=== PATIENT | female | born 1965 | race Caucasian/White ===

== ENCOUNTER 2016-05-18 10:34 | Inpatient (IN) | payer OTHER ==
--- NOTE | ~2016-05-18 | CR80 ---
[facility] A Service of [facility] & [facility] RADIOLOGY TEXT RESULTS PATIENT: FREDY MARTINEZ LOCATION: [facility] 47-01 : [birth year] UNIT #: [id number] AGE: [address]: Richy Cooper MD SEX: F ORDER DR: [id number] [facility] [address] [place], [place] [address] [id number] I MR#: [id number] Acc #: [id number] NAME: FREDY MARTINEZ : 1965 SEX: F STUDY DATE/TIME: 05/23/2016 14:59 UNIT: [facility] ROOM: [facility] STUDY DESCRIPTION: CR Cystogram Min 3 Views SI Attending Physician: Richy Cooper Jr., M.D. Ordering Physician: Lele Avila M.D. Primary Care Physician: Mirta Bagley M.D. MEDICAL IMAGING REPORT This report is preliminary unless electronic signature is present EXAM Cystogram, 05/23/2016 HISTORY Postop bladder surgery. Bladder cancer. Prior bladder fistula. Fluoroscopy time 2.2 minutes. FINDINGS 12 fluoroscopic spot films were obtained during the cystogram. The patient arrived at the fluoroscopy suite with a Garcia catheter in place. Fagot Heater images demonstrate surgical clips and skinny in the central pelvis and surgical skin skinny over the left pelvis. Approximately 100 mL of contrast was instilled into the bladder before the patient described maximal bladder filling. There was grade 3 vesicoureteral reflux on the left with preferential reflux into the left ureter. No vesicoureteral reflux on the right. No bladder mass or diverticulum is identified. No bladder leak. Contrast was subsequently drained through the Garcia catheter and the bladder was emptied completely. IMPRESSION 1. No evidence of bladder leak. 2. No bladder mass is identified. No bladder diverticulum. 3. Grade 3 vesicoureteral reflux on the left. No vesicoureteral reflux on the right. Dictated by... Jignesh Ford M.D. THIS IS AN ELECTRONICALLY VERIFIED REPORT Jignesh Ford M.D. at 05/24/2016 2:16 PM [facility] A Service of [facility] & [facility] RADIOLOGY TEXT RESULTS PATIENT: FREDY MARTINEZ LOCATION: [facility] 477-01 : [birth year] UNIT #: [id number] AGE: [address]: Richy Cooper MD SEX: F ORDER DR: ANUPAM/fina TD: 05/24/2016 05:30 JOB #: [id number] MEDICAL IMAGING REPORT COPY
--- NOTE | ~2016-05-18 | OR ---
Unit #: [id number] #: [id number] Patient: FREDY MARTINEZ [id number] [address] [address] [id number] I MR#: [id number] NAME: FREDY MARTINEZ ROOM: 47 Date of Procedure: 05/18/2016 Admission Date: 05/18/2016 Surgeon: Sundeep Fleming M.D. : 1965 Attending Physician: Richy Cooper Jr., M.D. Primary Care Physician: Mirta Bagley M.D. OPERATIVE REPORT PREOPERATIVE DIAGNOSIS Colovesical fistula. POSTOPERATIVE DIAGNOSIS Colovesical fistula. PROCEDURE PERFORMED Closure of cystotomy. ANESTHESIA General. INDICATIONS FOR PROCEDURE The patient is a pleasant female with a history of a colovesical fistula. She is undergoing a colectomy with Dr. Cooper. I am involved in the case for closure of the bladder. DESCRIPTION OF PROCEDURE The patient was taken to the operative suite and properly identified. After the application of satisfactory general anesthetic, the patient was placed in lower lithotomy position. Her abdomen was prepped and draped in the usual sterile fashion. A midline incision was made and this will be dictated by Dr. Cooper including the dissection of the colon and the lysis of adhesions. After colectomy was performed, we filled the bladder with approximately 300 mL of normal saline. There was possibly a small area of leakage around the fistula site of the dome. I closed this with a 2-0 Vicryl xlkala-kr-gwdme suture x2. This was watertight. The remainder of the operation will be dictated by Dr. Cooper. Dictated by... Yolanda Gautam/yadil TD: 05/18/2016 21:41 JOB #: [id number] Unit #: [id number] #: [id number] Patient: FREDY MARTINEZ OPERATIVE REPORT X Sundeep Fleming MD X PROCEDURE OPERATIVE NOTE
--- NOTE | ~2016-05-18 | OR ---
Unit #: [id number] #: [id number] Patient: FREDY MARTINEZ [id number] [address] [place], [place] [address] [id number] MR#: [id number] NAME: FREDY MARTINEZ ROOM: 47 Date of Procedure: 05/18/2016 Admission Date: 05/18/2016 Surgeon: Richy Cooper Jr., M.D. : 1965 Attending Physician: Richy Cooper Jr., M.D. Primary Care Physician: Mirta Bagley M.D. OPERATIVE REPORT INDICATIONS FOR PROCEDURE The patient is a 50-year-old white female, who recently was noted to have problems with urinary tract infections and was worked up and noted to have a small cancer of the bladder, but also evidence of severe diverticulitis with a colovesicular fistula. She has been treated with antibiotics. Her tumor removed from the bladder and it was felt that she needs sigmoid resection with takedown of her fistula at this time. She is brought in at this time after prep at home for this procedure. She understands the procedure including the risks, including that of anastomotic leaks, infection, abscess formation, recurrence of her fistula, and bleeding and consents. 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 These adhesions required 20 to 30 minutes to be taken down. ANESTHESIA General with endotracheal intubation. CO-SURGEON Dr. Dio Fleming. PROCEDURES PERFORMED Exploratory laparotomy, extensive lysis of adhesions requiring 30 minutes of lysis, with a sigmoid resection, and ijrv-md-zydt end-to-end anastomosis and repair of bladder fistula. DESCRIPTION OF PROCEDURE The patient was positioned in the supine position. After being anesthetized and intubated, she was prepped and draped in routine fashion for takedown of her colovesicular fistula and sigmoid resection. Midline incision was made extending from above the umbilicus to the left and down below the umbilicus towards the suprapubic area. This was carried down through the subcutaneous tissue down to the fascia. Upon opening of the abdomen, there was no evidence of any free intra-abdominal fluid. Remaining of the incision was opened with cutting edge of the Bovie Unit #: [id number] #: [id number] Patient: FREDY MARTINEZ cauteramanda. There were multiple dense omental adhesions, which required 30 minutes of taking these down along with mobilization of the adhesions of the colon to the lateral abdominal wall. After the sigmoid colon was mobilized, it was mobilized from the bladder and there was an obvious area that corresponded to her fistula seen before during workup. There was a small sterile abscess near the left fallopian tube and ovary and this was drained and cultures for aerobic and anaerobic organisms were sent. After mobilizing the sigmoid colon down in the pelvic area and all the way up the gutter towards the tip of the spleen with the Bovie cautery and sharp dissection, the distal sigmoid near the peritoneal reflection was then stapled and divided with a contour stapler and mesenteric vessels were clamped, divided, and ligated with 0 silk sutures. The colon was mobilized up above the area of the disease grossly and was then stapled and divided with a JADA stapling device. The specimen was removed. The right ureter could not be seen, but was well away from the area of dissection, and Dr. Fleming felt that it probably had no problems as far as an injury or surgical problems. The bladder was then repaired with two separate 2-0 Vicryl sutures and was inflated. This repair was done by Dr. Fleming, it was then inflated with saline and there was no evidence of any leaks. After several small vessel in the pelvic area were controlled with hemoclips, as well as 2-0 silk freehand ties, the pelvis was irrigated and there was no evidence of any ongoing bleeding. The proximal colon was then mobilized somewhat more and then the staple line was excised and the head of a 29 EEA stapler with the trocar on it was then placed within the colon and brought out through the lateral wall as routine. The trocar was removed. The stapler itself was then inserted up into the rectum and brought up into the site of the anterior sigmoid wall. It was then deployed. The proximal head was then brought down and attached to the stapler. It should be noted that prior to placement of the head of the stapler, the remaining opening which was left after placement of the head was then closed with a JADA stapling device. After the head was attached to the stem of the stapler, the stapler was closed, fired, and removed with two excellent complete donuts and no evidence of any complications. Saline was placed in the pelvic area. The colon occluded and air was used to check for any leaks with the septal in the rectum. There was no evidence of any bubbles or leaks. The saline was then removed. The abdomen was copiously irrigated with saline solution and after noting total hemostasis and no evidence of any traction on the proximal colon above the anastomosis, the omentum was brought down and used to cover the area in the pelvis. A 10 mm Brandon-Sanchez drain was brought through separate stab wound and placed in the pelvic area to cover for any leakage from the bladder and/or small amount of bleeding from the pelvic area from evacuation. After total hemostasis was noted, the midline was closed with #1 interrupted Vicryl sutures. The wound was irrigated and after hemostasis was achieved with Bovie cautery, the skin edges were approximated with stainless-steel skin clips and skin stapling device. Sterile dressings were applied externally. Estimated blood loss less than 250 mL. The patient received less than 3000 mL crystalloid solution during the procedure. Sponges and instruments counts were correct x3. There was one Brandon-Sanchez drain #10 mm used in the pelvic area as noted above. No complications. The patient was taken to the recovery room with stable vital signs in satisfactory condition. Dictated by... Richy Cooper Jr., M.D. Unit #: [id number] #: [id number] Patient: FREDY MARTINEZ KARUNA/rakesh TD: 05/21/2016 12:13 JOB #: [id number] CC: Sundeep Fleming M.D. OPERATIVE REPORT X Richy Cooper MD X PROCEDURE OPERATIVE NOTE
--- NOTE | ~2016-05-18 | DS ---
Unit #: [id number] #: [id number] Patient: FREDY MARTINEZ [id number] [address] [place], [place] [address] [id number] I MR#: [id number] NAME: FREDY MARTINEZ ROOM: 47 Age: 50 Sex: F Admission Date: 05/18/2016 : 1965 Discharge Date: 05/24/2016 Attending Physician: Richy Cooper Jr., M.D. Primary Care Physician: Mirta Bagley M.D. DISCHARGE SUMMARY BRIEF SUMMARY The patient is a 50-year-old white female who has had recurrent attacks recently of diverticulitis and was worked up and noted to have evidence of a small bladder cancer that was taken care of Dr. Fleming as well as colovesicular fistula. She has had intermittent urinary tract infections. She has been treated and cooled down on her infection and was brought in at this time for takedown of her colovesicular fistula with sigmoid resection. Physical examination on admission was unremarkable. Laboratory values basically were within normal limits. HOSPITAL COURSE The patient was admitted, underwent exploratory laparotomy with sigmoid resection and EE anastomosis and repair of a colovesicular fistula per Dr. Fleming. Postop, the patient has done well. She has had some anemia felt to be related to acute blood loss from her surgery but remains stable. She is tolerating a diet, having bowel movements although these are loose. Brandon-Sanchez drain, which was initially placed, has been removed. She is afebrile and in satisfactory condition. The plan will be to discharge the patient home on [place] 10 mg/325, one or two p.o. q.6 hours p.r.n. pain, and having her keep her wound clean and dry. She will be returning to the office in approximately one week for staple removal and further follow up. She will continue her followup with respect to her bladder cancer and her repaired fistula by Dr. Fleming in the office. Cystogram yesterday revealed no evidence of any leaks but some reflux into the ureter. She will be on limited lifting no more than 5 to 10 pounds, keeping her wound clean and dry, and returning to the office as noted above in approximately a week for staple removal. Dictated by... Richy Cooper Jr., M.D. JMB/klaudia TD: 05/26/2016 05:58 JOB #: [id number] CC: Sundeep Fleming M.D. Unit #: [id number] #: [id number] Patient: FREDY MARTINEZ DISCHARGE SUMMARY X Richy Cooper MD X DISCHARGE SUMMARY
--- NOTE | ~2016-05-18 | BMI ---
[facility] Nutrition Therapy DATE: 05/19/16 Patient: FREDY MARTINEZ Physician: DONOVAN Address: [address] [facility] Room/Bed: [address] [place] [address], Zip: [place] [address] Admit Date: 05/18/16 Date of : [birth year] Height: Weight: HIGH BMI NOTE: DX: 50 Y.O. FEMALE ADMITTED FOR COLOVESICAL FISTULA ANTHROPOMETRICS: 5'1", WT: 220# (100 KG), BMI: 41.6 DIET: NPO INTERVENTION: 1. NPO RECOMMENDATIONS: 1. ONCE MEDICALLY FEASIBLE, ADVANCE DIET INDICATED TO CC+HH TO PROMOTE GRADUAL WEIGHT LOSS TOWARDS HEALTHY BMI (19.0-25.0) OR +/-10%IBW RD WILL F/U PER PROTOCOL Respectfully, MITRA ROMO MS, RD, LD [facility] cc: client file
[~2016-05-18 10:34] MED LIST: FLAGYL PO; LEVAQUIN PO; LISINOPRIL10 MG PO; LISINOPRIL20 MG PO; MOTRIN600 M1 PO; ZESTRIL10 M2 PO; ZOLOFT50 MG PO; [UNRECOGNIZED DRUG - OTHER]
[2016-05-19 04:18] LABS: BLOOD UREA NITROGEN 14 mg/dL (9-23); CARBON DIOXIDE 22 mmol/L (22-31); CHLORIDE 109 mmol/L (100-111); CREATININE SERUM 0.8 mg/dL (0.6-1.4); GLOM FILT RATE Estimated ABOVE60 mL/min (>60); GLUCOSE FASTING 140 mg/dL (70-110); POTASSIUM 4.5 mmol/L (3.5-5.1); SODIUM 135 mmol/L (135-145)
[2016-05-19 08:18] LABS: BASOPHIL% 0.2 % (0-2.5); EOSINOPHIL% 0.1 % (0.0-7.0); HEMATOCRIT 35.3 % (35.0-45.0); HEMOGLOBIN 11.4 gm/dL (12.0-16.0); LYMPHOCYTE# 1.5 X10e3 (1.0-3.5); LYMPHOCYTE% 11.2 % (17.0-45.0); MEAN CORPUSCULAR HEMOGLOBIN 29.5 PG (28-34); MEAN CORPUSCULAR HGB CONC 32.5 g/dL (30-36); MEAN PLATELET VOLUME 7.7 FL (6.5-11.5); MONOCYTE# 0.8 X10e3 (0-1.0); MONOCYTE% 5.9 % (3.0-12.0); NEUTROPHIL# 11.1 X10e3 (1.5-7.1); NEUTROPHIL% 82.6 % (40-75); PLATELET COUNT 191 X10e3 (140-420); RED BLOOD COUNT 3.87 X10e (3.90-5.30); RED CELL DISTRIBUTION WIDTH 16.5 % (11.0-15.5); WHITE BLOOD COUNT 13.5 X10e3 (4.0-10.5)
[2016-05-19 08:22] LABS: DIFF IND NO
[2016-05-20 04:22] LABS: BASOPHIL% 0.3 % (0-2.5); EOSINOPHIL# 0.3 X10e3 (0-0.7); EOSINOPHIL% 2.7 % (0.0-7.0); HEMATOCRIT 30.8 % (35.0-45.0); HEMOGLOBIN 10.1 gm/dL (12.0-16.0); LYMPHOCYTE# 1.5 X10e3 (1.0-3.5); LYMPHOCYTE% 16.3 % (17.0-45.0); MEAN CELL VOLUME 90.7 FL (83-96); MEAN CORPUSCULAR HEMOGLOBIN 29.9 PG (28-34); MEAN CORPUSCULAR HGB CONC 32.9 g/dL (30-36); MEAN PLATELET VOLUME 7.4 FL (6.5-11.5); MONOCYTE# 0.7 X10e3 (0-1.0); MONOCYTE% 7.4 % (3.0-12.0); NEUTROPHIL# 6.9 X10e3 (1.5-7.1); NEUTROPHIL% 73.3 % (40-75); PLATELET COUNT 141 X10e3 (140-420); RED BLOOD COUNT 3.39 X10e (3.90-5.30); RED CELL DISTRIBUTION WIDTH 15.6 % (11.0-15.5); WHITE BLOOD COUNT 9.4 X10e3 (4.0-10.5)
[2016-05-20 04:25] LABS: DIFF IND NO
[2016-05-20 04:59] LABS: BLOOD UREA NITROGEN <5 mg/dL (9-23); CALCIUM SERUM 8.3 mg/dL (8.4-10.2); CARBON DIOXIDE 27 mmol/L (22-31); CHLORIDE 107 mmol/L (100-111); CREATININE SERUM 0.5 mg/dL (0.6-1.4); GLOM FILT RATE Estimated ABOVE60 mL/min (>60); GLUCOSE FASTING 129 mg/dL (70-110); MAGNESIUM 1.8 mg/dL (1.6-3.0); POTASSIUM 4.4 mmol/L (3.5-5.1); SODIUM 137 mmol/L (135-145)
[2016-05-23 02:47] LABS: HEMATOCRIT 29.9 % (35.0-45.0); HEMOGLOBIN 10.1 gm/dL (12.0-16.0); MEAN CELL VOLUME 90.3 FL (83-96); MEAN CORPUSCULAR HEMOGLOBIN 30.6 PG (28-34); MEAN CORPUSCULAR HGB CONC 33.9 g/dL (30-36); MEAN PLATELET VOLUME 7.1 FL (6.5-11.5); RED BLOOD COUNT 3.31 X10e (3.90-5.30); WHITE BLOOD COUNT 5.5 X10e3 (4.0-10.5)
[2016-05-23 03:23] LABS: BLOOD UREA NITROGEN 6 mg/dL (9-23); CALCIUM SERUM 8.3 mg/dL (8.4-10.2); CARBON DIOXIDE 31 mmol/L (22-31); CHLORIDE 98 mmol/L (100-111); CREATININE SERUM 0.6 mg/dL (0.6-1.4); GLOM FILT RATE Estimated ABOVE60 mL/min (>60); GLUCOSE FASTING 103 mg/dL (70-110); POTASSIUM 4.3 mmol/L (3.5-5.1); SODIUM 131 mmol/L (135-145)
[2016-05-24] MEDS ORDERED: NORCO 10-325 TA1 TAB PO (11:01)
[2016-06-24] MEDS ORDERED: ONE DAILY MUL400 MCG PO (14:20)
== END 2016-05-24 11:55 | disposition home or self-care (01) | DRG 654 ==
LOC: CSUR 10:34 → CPACUOF 17:40 → C4C 20:30
PROVIDERS: Obstetrics & Gynecology; Surgery; Urology
PROC: 0TQB0ZZ Repair Bladder, Open Approach (ICD-10-PCS; 2016-05-18)
PROC: 0DTN0ZZ Resection of Sigmoid Colon, Open Approach (ICD-10-PCS; 2016-05-18)
PROC: 0DNS0ZZ (ICD-10-PCS; principal; 2016-05-18 12:30)
PROC: 0TQB0ZZ Repair Bladder, Open Approach (ICD-10-PCS; 2016-05-18 12:30)
DX: N32.1 Vesicointestinal fistula (principal); K57.92 Diverticulitis of intestine, part unspecified, without perforation or abscess without bleeding; Z68.41 Body mass index [BMI] 40.0-44.9, adult; K56.7 Ileus, unspecified; E66.01 Morbid (severe) obesity due to excess calories; D62 Acute posthemorrhagic anemia; I10 Essential (primary) hypertension; F17.210 Nicotine dependence, cigarettes, uncomplicated
CPT/HCPCS: 74430; 80048; 83735; 85025; 85027; 87070; 87075; 87205; 88305; 88307; 94010; 94760; 97116; 97162; 97165; 97530; J1170; J1650; J1885; J2250; J2270; J2405; J2550; J3010

== ENCOUNTER → 2016-06-28 | Day surgery (SDC) | payer OTHER ==
[~2016-06-28] MED LIST changes: +NORCO 10-325 TA1 TAB PO; +ONE DAILY MUL400 MCG PO
--- NOTE | ~2016-06-28 | OR ---
Unit #: [id number] #: [id number] Patient: FREDY MARTINEZ [id number] [address] [address] [id number] O MR#: [id number] NAME: FREDY MARTINEZ ROOM: Date of Procedure: 06/28/2016 Admission Date: 06/28/2016 Surgeon: Sundeep Fleming M.D. : 1965 Attending Physician: Sundeep Fleming M.D. Primary Care Physician: Mirta Bagley M.D. OPERATIVE REPORT PREOPERATIVE DIAGNOSIS Bladder cancer, left lateral wall. POSTOPERATIVE DIAGNOSIS Bladder cancer, left lateral wall. PROCEDURE PERFORMED Transurethral resection of bladder tumor, small. ANESTHESIA General. INDICATIONS FOR PROCEDURE Ms. Martinez is a pleasant 50-year-old female with a history of superficial bladder cancer. She also has history of a colovesical fistula, status post repair. She was recently found on surveillance cystoscopy to have recurrent papillary bladder tumor along the left lateral bladder wall. The risks, benefits, alternatives including bleeding, infection, damage to adjacent structures, need for further surgery, bladder perforation, recurrence, and all the risks were discussed with the patient. She has been instructed on smoking cessation as well. Full informed consent was obtained. She wished to proceed. DESCRIPTION OF PROCEDURE The patient was taken to the operative suite and properly identified. After the application of satisfactory general anesthetic, the patient was placed in the dorsal lithotomy position. All pressure points were padded to the satisfaction of surgical, anesthetic, and nursing teams. Her genitalia were prepped and draped in usual sterile fashion. I introduced a rigid 22-Burkinan cystoscope. I performed panendoscopy. She had some mild erythema at the site of a previous colovesical fistula, but no recurrent fistula. There was a small papillary bladder tumor on the left lateral wall near the bladder neck. I switched to a 28-Burkinan continuous flow resectoscope and resected this. The tumor was sent as specimen. Hemostasis was achieved. There was no evidence of bladder perforation. Bladder was emptied. The scope was removed. The Uro-jet was passed. The patient tolerated the procedure well without complication. She was transported stable and extubated to PACU. PLAN The plan will be for the patient to follow up for pathology in 2 weeks. We may consider doing BCG as she does have recurrent bladder cancer. Unit #: [id number] #: [id number] Patient: FREDY MARTINEZ Dictated by... Yolanda Gautam/rakesh TD: 06/29/2016 00:33 JOB #: [id number] OPERATIVE REPORT Page 1 of 1 X Sundeep Fleming MD PROCEDURE OPERATIVE NOTE
[2016-06-28 13:21] LABS: BASOPHIL% 0.5 % (0-2.5); EOSINOPHIL# 0.2 X10e3 (0-0.7); EOSINOPHIL% 2.6 % (0.0-7.0); HEMATOCRIT 39.4 % (35.0-45.0); HEMOGLOBIN 12.9 gm/dL (12.0-16.0); LYMPHOCYTE# 2.2 X10e3 (1.0-3.5); LYMPHOCYTE% 29.4 % (17.0-45.0); MEAN CELL VOLUME 90.3 FL (83-96); MEAN CORPUSCULAR HEMOGLOBIN 29.6 PG (28-34); MEAN CORPUSCULAR HGB CONC 32.8 g/dL (30-36); MEAN PLATELET VOLUME 7.9 FL (6.5-11.5); MONOCYTE# 0.4 X10e3 (0-1.0); MONOCYTE% 5.1 % (3.0-12.0); NEUTROPHIL# 4.6 X10e3 (1.5-7.1); NEUTROPHIL% 62.4 % (40-75); PLATELET COUNT 223 X10e3 (140-420); RED BLOOD COUNT 4.37 X10e (3.90-5.30); RED CELL DISTRIBUTION WIDTH 14.2 % (11.0-15.5); WHITE BLOOD COUNT 7.4 X10e3 (4.0-10.5)
[2016-06-28 13:27] LABS: DIFF IND NO
[2016-06-28 13:44] LABS: BUN/CREATININE RATIO 27.14; CALCIUM SERUM 9.5 mg/dL (8.4-10.2); CREATININE SERUM 0.7 mg/dL (0.6-1.4); POTASSIUM 4.7 mmol/L (3.5-5.1)
== END | disposition home or self-care (01) ==
LOC: CSUR 11:55
PROVIDERS: Urology
DX: C67.2 Malignant neoplasm of lateral wall of bladder (principal); I10 Essential (primary) hypertension; F17.200 Nicotine dependence, unspecified, uncomplicated; K21.9 Gastro-esophageal reflux disease without esophagitis; M19.90 Unspecified osteoarthritis, unspecified site
CPT/HCPCS: 80048; 85025; 88305; J0330; J1100; J1956; J2250; J2405; J3010

== ENCOUNTER → 2016-10-25 | Outpatient (CLI) | payer OTHER ==
--- NOTE | ~2016-10-25 | MY29 ---
[facility] A Service of [facility] / [facility] RADIOLOGY TEXT RESULTS PATIENT: FREDY MARTINEZ LOCATION: [facility] : [birth year] UNIT #: [id number] AGE: [address]: Mirta Bagley MD SEX: F ORDER DR: [id number] [facility] [address] [place], [place] [address] [id number] MR#: [id number] Acc #: [id number] NAME: FREDY MARTINEZ : 1965 SEX: F STUDY DATE/TIME: 10/25/2016 9:20 UNIT: [facility] ROOM: STUDY DESCRIPTION: MY LENCHO SCREENING W/ CAD BILAT Attending Physician: Mirta Bagley M.D. Ordering Physician: Mirta Bagley M.D. Primary Care Physician: Mirta Bagley M.D. MEDICAL IMAGING REPORT This report is preliminary unless electronic signature is present EXAM Digital screening mammogram, 10/25/2016, [facility]. HISTORY 51-year-old woman positive family history, cousin age 36. Annual screen. COMPARISON Mammogram from [facility], dated 07/18/2015. FINDINGS Digital imaging of each breast was completed utilizing a two-view examination of each breast in craniocaudal and mediolateral-oblique projections. Review and interpretation of digital mammograms include a second review in conjunction with FDA-approved CAD device. There is a normal parenchymal presentation bilaterally consistent with the patient's age. There are no breast masses imaged and no parenchymal asymmetry is visualized. There are no suspicious microcalcifications and I see no focal architectural disturbance. IMPRESSION Negative screening digital mammogram. One-year followup recommended. Patients over the age of 40 are entered into a reminder system with target due date for the next mammogram. A result letter will also be sent to the patient. BIRADS: 1 Negative. ADDENDUM Breast parenchyma is fatty replaced. [facility] A Service of [facility] / [facility] RADIOLOGY TEXT RESULTS PATIENT: FREDY MARTINEZ LOCATION: [facility] : 65 UNIT #: [id number] AGE: [address]: Mirta Bagley MD SEX: F ORDER DR: Dictated by... Kobe Winchester M.D. THIS IS AN ELECTRONICALLY VERIFIED REPORT Kobe Winchester M.D. at 10/27/2016 8:02 AM JOEL/heather TD: 10/26/2016 18:18 JOB #: [id number] MEDICAL IMAGING REPORT Page 1 of 1 COPY
== END | disposition home or self-care (01) ==
LOC: CWCC 08:45
DX: Z12.31 Encounter for screening mammogram for malignant neoplasm of breast (principal); Z80.3 Family history of malignant neoplasm of breast; R92.8 Other abnormal and inconclusive findings on diagnostic imaging of breast
CPT/HCPCS: G0202